=== PATIENT | male | born 1940 | race Caucasian/White ===

== ENCOUNTER → 2023-08-15 15:48 | Outpatient (CLI) | payer MEDICARE, SELFPAY | PROVIDERS: PCP Registered Nurse; Visit Provider Urology | DX: N40.1 Benign prostatic hyperplasia with lower urinary tract symptoms (principal); N13.8 Other obstructive and reflux uropathy; R33.9 Retention of urine, unspecified; R39.12 Poor urinary stream; R39.11 Hesitancy of micturition; R82.81 Pyuria | CPT/HCPCS: 51798; 81002; 87086; 99214 ==

== ENCOUNTER 2023-08-17 10:29 | Emergency (ER) | payer MEDICARE, SELFPAY ==
[2023-08-17] VITALS (9 sets, daily range): BP systolic 130–171; BP diastolic 65–94; PULSE 60–78; RESP 16; TEMP 36.6–36.7; O2SAT 98; BMI 27.9
--- NOTE | 2023-08-17 10:32 | ED.GENADULT ---
HPI - General Adult General Chief complaint: Urogenital-Male Stated complaint: unable to urinate Time Seen by Provider: 08/17/23 10:29 Source: patient Mode of arrival: Ambulatory Limitations: no limitations History of Present Illness HPI narrative: Patient is an 83-year-old male. Does have a UroLift in place. History of enlarged prostate. Was seen by Urology just a couple days ago. Had a urinalysis that was nitrite positive but the subsequent urine culture showed mixed Gram-positive iris. He is never had a urinary catheter in the past. States that over the past couple days he has noticed decreased ability to urinate to the point now where he feels like he can not empty his bladder. He is feeling quite a bit of lower abdominal pressure. Related Data Home Medications Medication Instructions Recorded Confirmed amlodipine 10 mg-benazepril 40 mg 1 cap PO DAILY 08/15/23 08/15/23 capsule apixaban 5 mg tablet (Eliquis) 5 mg PO BID 08/15/23 08/15/23 simvastatin 20 mg tablet 20 mg PO DAILY 08/15/23 08/15/23 Previous Rx's Medication Instructions Recorded tamsulosin 0.4 mg capsule 0.4 mg PO DAILY #30 caps 08/17/23 Allergies Allergy/AdvReac Type Severity Reaction Status Date / Time No Known Drug Allergies Allergy Verified 08/17/23 10:39 Review of Systems Constitutional Constitutional: Reports system reviewed and no additional complaints, except as documented Gastrointestinal Gastrointestinal: Reports system reviewed and no additional complaints, except as documented Genitourinary Genitourinary: Reports system reviewed and no additional complaints, except as documented Patient History Medical History BPH w urinary obs/LUTS Pulmonary embolism High blood pressure Lymphoma Surgical History (Updated 08/15/23 @ 15:48 by Ani Mortensen RN) History of prostate surgery H/O vasectomy H/O transurethral resection of prostate Social History marital status: unmarried,single number of children: 2 occupational status: previously employed and other Smoking Status: Former smoker Tobacco: How many years used: 20 alcohol intake: current caffeine: Yes Type(s) of exercise: walking Smoking Status: Former smoker Exam Initial Vital Signs Initial Vital Signs: Vital Signs Temperature 97.8 F 08/17/23 10:36 Pulse Rate 60 08/17/23 10:36 Respiratory Rate 16 08/17/23 10:36 Blood Pressure 171/94 H 08/17/23 10:36 Pulse Oximetry 98 08/17/23 10:36 Oxygen Delivery Method Room Air 08/17/23 10:36 Const General: cooperative and comfortable GI Inspection: normal to inspection and non-distended Palpation: tender (Suprapubic) Neuro General: patient alert, patient awake and moves all extremities Extrem General: capillary refill normal Course Orders Ordered: ED Orders 08/17/23 11:00 Urine Culture Stat Discontinued Medications Lidocaine HCl (Lidocaine 2% (Glydo) 6 Ml Gel) 6 ml TOP NOW ONE Stop: 08/17/23 10:37 Last Admin: 08/17/23 10:42 Dose: 6 ml Documented By: CASSY Vital Signs Vital signs: Vital Signs - 8 hr 08/17/23 10:36 08/17/23 11:00 Temperature 97.8 F Pulse Rate 60 Respiratory Rate 16 Blood Pressure 171/94 H 142/66 H Pulse Oximetry 98 Oxygen Delivery Method Room Air Medical Decision Making MDM Narrative Medical decision making narrative: Patient did have acute urinary retention. Had a urinalysis done a couple days ago with a urine culture that was mixed iris. A repeat urine culture was started today. He is not on Flomax so we will start him on that. Will have him follow-up with urology. Discharge Plan Departure Patient Disposition: Home Clinical Impression: Acute urinary retention Instructions: How to Care for Your Bynum Catheter -- Male, DI for Urinary Retention in Men Activity Restrictions/Additional Instructions: Recommend that you contact the office of Dr. Stahl for a follow-up. Continue to take all of your medications as directed. Return to the emergency department for new or worsening symptoms. Prescriptions: New tamsulosin 0.4 mg capsule 0.4 mg PO DAILY Qty: 30 0RF No Action Eliquis 5 mg tablet 5 mg PO BID amlodipine-benazepril 10-40 mg capsule 1 cap PO DAILY simvastatin 20 mg tablet 20 mg PO DAILY Referrals: Rita Cruz ARNP [Primary Care Provider] - Stand Alone Forms: Patient Portal/API
[2023-08-17] MEDS: LIDOCAINE 2% (GLYDO) 6 ML GEL TOP (10:42)
== END 2023-08-17 11:42 | disposition home or self-care (01) ==
PROVIDERS: Emergency Provider Emergency Medicine; PCP Registered Nurse
DX: N40.1 Benign prostatic hyperplasia with lower urinary tract symptoms (principal); R33.8 Other retention of urine; Z79.01 Long term (current) use of anticoagulants
CPT/HCPCS: 51798; 87077; 87086; 87186; 99283

== ENCOUNTER 2023-08-18 20:08 | Emergency (ER) | payer MEDICARE, SELFPAY ==
[2023-08-18 20:15] VITALS: BP 131/59; PULSE 75; RESP 18; TEMP 36.4; O2SAT 97; BMI 27.9
--- NOTE | 2023-08-18 20:15 | PC.NURSE ---
Pt here because he hasn't seen any output from his vang into his leg bag in the last two hours. Denies abdominal discomfort/pain. Upon triage and assessment, there is a small amount of dark/ti urine present in bag. Pt reports there has been some blood in urine since placement and pt is taking Eliquis. Denies dizziness/chest pain or any other symptoms.
--- NOTE | 2023-08-18 20:35 | PC.NURSE ---
20:15 this nurse in to assess patient. Patient's catheter now draining, patent. Patient wanting to go home without doctor seeing him.
== END 2023-08-18 20:42 | disposition left against medical advice (07) ==
PROVIDERS: Emergency Provider Family Medicine Addiction Medicine; PCP Registered Nurse
DX: R33.9 Retention of urine, unspecified (principal)
CPT/HCPCS: 51798; 99282

== ENCOUNTER → 2023-08-22 12:36 | Outpatient (CLI) | payer MEDICARE, SELFPAY ==
--- NOTE | 2023-08-22 12:37 | DI.US.S_ITS ---
PROCEDURE: US RENAL COMPLETE INDICATIONS: URINARY RETENTION; POSSIBLE HYDRONEPHROSIS TECHNIQUE: Real-time scanning was performed of the kidneys and bladder, with image documentation. COMPARISON: None. FINDINGS: Kidneys: Kidneys are normal in size. Right kidney measures 9.6 cm long; left kidney measures 10.0 cm long. Right renal cortical thickness is 1.3 cm; left renal cortical thickness is 1.4 cm. Renal cortical echotexture is normal. No hydronephrosis or nephrolithiasis. No suspicious solid mass lesions. Bladder: Decompressed around a Bynum catheter. Miscellaneous: No free pelvic fluid. IMPRESSION: Normal renal ultrasound. No hydronephrosis. Dictated by: Galdino Lomeli M.D. on 08/22/2023 at 15:17 Approved by: Galdino Lomeli M.D. on 08/22/2023 at 15:17
== END ==
PROVIDERS: PCP Registered Nurse; Referring Provider Urology; Visit Provider Urology
DX: N40.1 Benign prostatic hyperplasia with lower urinary tract symptoms (principal); R33.9 Retention of urine, unspecified; N13.8 Other obstructive and reflux uropathy
CPT/HCPCS: 76770

== ENCOUNTER 2023-08-27 19:29 | Emergency (ER) | payer MEDICARE, SELFPAY ==
[2023-08-27 19:31] VITALS: BP 157/71; PULSE 65; RESP 16; TEMP 36.6; O2SAT 98; BMI 27.2
--- NOTE | 2023-08-27 19:50 | ED_ITS ---
HPI - General Adult General Chief complaint: Urogenital-Male Stated complaint: Urinary catheter issues Time Seen by Provider: 08/27/23 19:40 Source: patient Mode of arrival: Ambulatory History of Present Illness HPI narrative: 83-year-old male has an indwelling urinary catheter in place. Is scheduled to receive urology next week. Is on Bactrim. Here because he states that his catheter is draining appropriately but he has quite a bit of discomfort at the tip of his penis in his concerned about redness around the tip of his penis. No fevers. Related Data Home Medications Medication Instructions Recorded Confirmed amlodipine 10 mg-benazepril 40 mg 1 cap PO DAILY 08/15/23 08/15/23 capsule apixaban 5 mg tablet (Eliquis) 5 mg PO BID 08/15/23 08/15/23 simvastatin 20 mg tablet 20 mg PO DAILY 08/15/23 08/15/23 Previous Rx's Medication Instructions Recorded tamsulosin 0.4 mg capsule 0.4 mg PO DAILY #30 caps 08/17/23 sulfamethoxazole 800 1 tab PO BID #8 tabs 08/23/23 mg-trimethoprim 160 mg tablet (Bactrim DS) cephalexin 500 mg capsule 500 mg PO QID 7 days #28 caps 08/27/23 lidocaine 5 % topical cream 1 applic topical TID PRN pain #15 08/27/23 grams Allergies Allergy/AdvReac Type Severity Reaction Status Date / Time No Known Drug Allergies Allergy Verified 08/17/23 10:39 Review of Systems Constitutional Constitutional: Reports system reviewed and no additional complaints, except as documented Genitourinary Genitourinary: Reports system reviewed and no additional complaints, except as documented Integumentary/Breasts Skin/Breast: Reports system reviewed and no additional complaints, except as documented Patient History Medical History BPH w urinary obs/LUTS Pulmonary embolism High blood pressure Lymphoma Surgical History (Updated 08/15/23 @ 15:48 by Ani Mortensen RN) History of prostate surgery H/O vasectomy H/O transurethral resection of prostate Social History marital status: unmarried,single number of children: 2 occupational status: previously employed and other Smoking Status: Former smoker Tobacco: How many years used: 20 alcohol intake: current caffeine: Yes Type(s) of exercise: walking Smoking Status: Former smoker alcohol intake frequency: 0-2 drinks per day Alcohol type: beer Substance Use Type: does not use Exam Initial Vital Signs Initial Vital Signs: Vital Signs Temperature 97.8 F 08/27/23 19:31 Pulse Rate 65 08/27/23 19:31 Respiratory Rate 16 08/27/23 19:31 Blood Pressure 157/71 H 08/27/23 19:31 Pulse Oximetry 98 08/27/23 19:31 Oxygen Delivery Method Room Air 08/27/23 19:31 GI Inspection: non-distended Scrotum: scrotum normal Other: Patient is circumcised. He does have redness on the glans of the penis. No vesicles. Urinary catheter is in place. Skin Other: Redness and irritation around the tip of the glands Course Orders Ordered: Discontinued Medications Cephalexin HCl (Cephalexin 250 Mg Capsule) 500 mg PO NOW ONE Stop: 08/27/23 19:50 Last Admin: 08/27/23 20:02 Dose: 500 mg Documented By: MARÍA Lidocaine HCl (Lidocaine 2% (Glydo) 6 Ml Gel) 6 ml TOP NOW ONE Stop: 08/27/23 19:50 Last Admin: 08/27/23 20:02 Dose: 6 ml Documented By: MARÍA Vital Signs Vital signs: Vital Signs - 8 hr 08/27/23 19:31 08/27/23 20:26 Temperature 97.8 F 97.7 F Pulse Rate 65 76 Respiratory Rate 16 16 Blood Pressure 157/71 H 148/78 H Pulse Oximetry 98 98 Oxygen Delivery Method Room Air Room Air Medical Decision Making MDM Narrative Medical decision making narrative: Bynum catheter is in place in his draining. He is wearing an adult brief. He states that he changes the brief once a day however it does seem to be quite a bit of moisture and I advised that he consider changing the brief more often has some of the redness around his scrotum of the tip of his penis could start to progress into some skin breakdown. He does have redness around the glans of the penis. He is on Bactrim. I feel adding Keflex is warranted in his situation. A prescription was given. We also adjusted the Bynum catheter so that there was less tension on it. Will also prescribe some lidocaine cream as well. He was given return precautions follow-up instructions. He expressed understanding and agreement. Discharge Plan Departure Patient Disposition: Home Clinical Impression: Complication of Bynum catheter Activity Restrictions/Additional Instructions: I do recommend on Tuesday you contact your urologist for a follow-up. He may wait and see you on Tuesday of next week at your regularly scheduled appointme nt. Continue to take your Bactrim however we are going to add a new medicine called Keflex. You were also given a prescription for a lidocaine cream. This is an as-needed medicine to try to help with the irritation with the catheter. It is also important that you change your brief often to keep the area clean and dry. Return to the emergency department for new symptoms. Prescriptions: New cephalexin 500 mg capsule 500 mg PO QID 7 Days Qty: 28 0RF lidocaine 5 % cream 1 applic topical TID PRN (Reason: pain) Qty: 15 0RF No Action sulfamethoxazole-trimethoprim [Bactrim DS] 800-160 mg tablet 1 tab PO BID Qty: 8 0RF tamsulosin 0.4 mg capsule 0.4 mg PO DAILY Qty: 30 0RF Eliquis 5 mg tablet 5 mg PO BID amlodipine-benazepril 10-40 mg capsule 1 cap PO DAILY simvastatin 20 mg tablet 20 mg PO DAILY Referrals: Rita Cruz ARNP [Primary Care Provider] - Stand Alone Forms: Patient Portal/API
[2023-08-27] MEDS: cephALEXin 250 MG CAPSULE 500 MG PO (20:02)
[2023-08-27] MEDS: LIDOCAINE 2% (GLYDO) 6 ML GEL TOP (20:02)
[2023-08-27 20:26] VITALS: BP 148/78; PULSE 76; RESP 16; TEMP 36.5; O2SAT 98
== END 2023-08-27 20:27 | disposition home or self-care (01) ==
PROVIDERS: Emergency Provider Emergency Medicine; PCP Registered Nurse
DX: T83.84XA Pain due to genitourinary prosthetic devices, implants and grafts, initial encounter (principal)
CPT/HCPCS: 99283

== ENCOUNTER → 2023-08-31 10:15 | Outpatient (CLI) | payer MEDICARE, SELFPAY | PROVIDERS: PCP Registered Nurse; Visit Provider Urology | DX: N40.1 Benign prostatic hyperplasia with lower urinary tract symptoms (principal); N13.8 Other obstructive and reflux uropathy; R33.9 Retention of urine, unspecified | CPT/HCPCS: 52000; 87086 ==

== ENCOUNTER → 2023-09-15 12:59 | Outpatient (CLI) | payer MEDICARE, SELFPAY | PROVIDERS: PCP Registered Nurse; Visit Provider Urology | DX: R33.9 Retention of urine, unspecified (principal); R39.12 Poor urinary stream; N40.1 Benign prostatic hyperplasia with lower urinary tract symptoms; N13.8 Other obstructive and reflux uropathy | CPT/HCPCS: 87077; 87086; 87186 ==

== ENCOUNTER → 2023-09-28 14:25 | Outpatient (CLI) | payer MEDICARE, SELFPAY | PROVIDERS: PCP Registered Nurse; Visit Provider Specialist | DX: N40.0 Benign prostatic hyperplasia without lower urinary tract symptoms (principal); R33.9 Retention of urine, unspecified; R39.12 Poor urinary stream | CPT/HCPCS: 87077; 87086; 87186; 99211 ==

== ENCOUNTER → 2023-11-27 11:22 | Outpatient (CLI) | payer OTHER, SELFPAY | PROVIDERS: PCP Registered Nurse; Visit Provider Nurse Practitioner Family | DX: R10.9 Unspecified abdominal pain (principal) | CPT/HCPCS: 87077; 87086; 87186 ==

== ENCOUNTER → 2023-12-23 10:54 | Outpatient (CLI) | payer OTHER, SELFPAY | PROVIDERS: PCP Registered Nurse; Visit Provider Urology | DX: N40.1 Benign prostatic hyperplasia with lower urinary tract symptoms (principal); N31.9 Neuromuscular dysfunction of bladder, unspecified; R33.9 Retention of urine, unspecified; R39.11 Hesitancy of micturition; Z90.79 Acquired absence of other genital organ(s); Z87.440 Personal history of urinary (tract) infections; Z98.890 Other specified postprocedural states; Z78.9 Other specified health status | CPT/HCPCS: 81002; 87077; 87086; 87186; 99213 ==

== ENCOUNTER → 2024-01-04 11:16 | Outpatient (CLI) | payer OTHER, SELFPAY ==
[2024-01-04 12:47] LABS: Add Manual Diff / Slide Review NO; Basophils Absolute Auto 100 /uL (0-100); Eosinophils Absolute Auto 800 /uL (0-450); Eosinophils Percent Auto 8.9 % (2-4); Hematocrit 38.7 % (41-53); Hemoglobin 13.5 g/dL (13.5-17.5); Lymphocytes Absolute Auto 3800 /uL (1100-4500); Lymphocytes Percent Auto 42.3 % (25-40); Mean Corpuscular HGB Conc 34.8 % (30-36); Mean Corpuscular Hemoglobin 31.7 PG (26-34); Monocytes Absolute Auto 600 /uL (0-900); Monocytes Percent Auto 6.9 % (3-14); Neutrophils Absolute Auto 3700 /uL (1500-7000); Neutrophils Percent Auto 40.9 % (50-75); Platelet Count 165 X10^3/uL (150-400); Red Blood Cell Count 4.25 X10^6/uL (4.5-5.9); Red Cell Distribution Width 14.6 % (11.6-14.8)
[2024-01-04 13:10] LABS: Alanine Aminotransferase 21 IU/L (<50); Albumin 4.3 g/dL (3.5-5.0); Albumin Globulin Ratio 1.2 (1.0-2.8); Alkaline Phosphatase 58 U/L (38-126); Aspartate Aminotransferase 30 IU/L (17-59); BUN Creatinine Ratio 15.7 (6-22); Bilirubin Total 0.6 mg/dL (0.2-1.3); Blood Urea Nitrogen 22 mg/dL (9-20); Carbon Dioxide 26 mmol/L (22-32); Chloride 110 mmol/L (98-107); Estimated Glomerular Filt Rate 50 mL/min (>60); Globulin 3.7 g/dL (1.7-4.1); Glucose 86 mg/dL (80-110); HEMOLYSIS < 15 (0-50); Lactate Dehydrogenase 205 U/L (120-246); Potassium 3.9 mmol/L (3.4-5.1); Sodium 142 mmol/L (137-145)
[2024-01-06 16:25] LABS: Immunoglobulin A, Serum 34 mg/dL (61-437); Immunoglobulin G,Serum 2408 mg/dL (603-1613); Immunoglobulin M, Serum 113 mg/dL (15-143)
[2024-01-06 17:09] LABS: Albumin 3.7 g/dL (2.9-4.4); Alpha-1-Globulin 0.2 g/dL (0.0-0.4); Alpha-2-Globulin 0.7 g/dL (0.4-1.0); Gamma Globulin 2.3 g/dL (0.4-1.8); Protein, Total 7.7 g/dL (6.0-8.5)
[2024-01-06 21:05] LABS: Free Kappa Lt Chains, Serum 72.3 mg/L (3.3-19.4); Free Lambda Lt Chains,Serum 9.3 mg/L (5.7-26.3)
== END ==
PROVIDERS: PCP Registered Nurse; Referring Provider Internal Medicine Hematology & Oncology; Visit Provider Internal Medicine Hematology & Oncology
DX: C85.80 Other specified types of non-Hodgkin lymphoma, unspecified site (principal); D47.2 Monoclonal gammopathy
CPT/HCPCS: 36415; 80053; 82232; 82784; 83615; 83883; 84155; 84165; 85025; 86334

== ENCOUNTER → 2024-02-29 14:13 | Outpatient (CLI) | payer OTHER, SELFPAY | PROVIDERS: PCP Registered Nurse; Visit Provider Urology | DX: N31.9 Neuromuscular dysfunction of bladder, unspecified (principal); R31.21 Asymptomatic microscopic hematuria; R33.9 Retention of urine, unspecified; Z87.440 Personal history of urinary (tract) infections; Z98.890 Other specified postprocedural states; Z90.79 Acquired absence of other genital organ(s); Z78.9 Other specified health status | CPT/HCPCS: 81002; 87077; 87086; 87186; 99214 ==

== ENCOUNTER → 2024-06-21 08:33 | Outpatient (CLI) | payer OTHER, SELFPAY | PROVIDERS: PCP Registered Nurse; Referring Provider Urology; Visit Provider Urology | DX: N39.0 Urinary tract infection, site not specified (principal) | CPT/HCPCS: 87077; 87086 ==

== ENCOUNTER → 2024-11-07 12:43 | Outpatient (CLI) | payer MEDICARE, OTHER, SELFPAY ==
--- NOTE | 2024-11-07 12:45 | DI.MRI.S_ITS ---
PROCEDURE: MR PELIS WO/W CON INDICATIONS: PROCTALGIA FUGAX TECHNIQUE: Coronal HASTE, sagittal T2 FSE, axial T1 FSE, axial and coronal nonbreath-hold T2 FSE. Axial dynamic VIBE during administration of contrast. Post-contrast axial and coronal VIBE/2-D FLASH with fat saturation from the iliac crests to the symphysis. Optional diffusion weighted imaging and ADC may be performed. COMPARISON: None. FINDINGS: Image quality: Excellent. Bowel and peritoneum: No pathologic free pelvic fluid. Inferior colon and small bowel loops are normal in caliber. Colonic diverticulosis without evidence of diverticulitis. Genitourinary system: Trabeculated bladder wall. The prostate is enlarged. There is wedge-shaped T2 hypointense signal within the peripheral zone of the prostate. Nodes and vessels: No pathologic pelvic or inguinal adenopathy by size criteria. Iliac vessels are normal in caliber. Soft tissues: Small inguinal hernias containing fat. Bones: Marrow is normal in overall signal. IMPRESSION: Prostate is enlarged, with wedge-shaped T2 hypointense signal within the peripheral zone. Findings most likely represent prostatitis, but malignancy is a consideration. Correlate with PSA. If elevated, consider prostate MRI to exclude prostate cancer. Trabeculated bladder wall, commonly seen with chronic outlet obstruction. Dictated by: Galdino Lomeli M.D. on 11/07/2024 at 16:16 Approved by: Galdino Lomeli M.D. on 11/07/2024 at 16:19
== END ==
PROVIDERS: PCP Registered Nurse; Referring Provider Registered Nurse; Visit Provider Registered Nurse
DX: K59.4 Anal spasm (principal); N40.0 Benign prostatic hyperplasia without lower urinary tract symptoms; N32.89 Other specified disorders of bladder; K57.90 Diverticulosis of intestine, part unspecified, without perforation or abscess without bleeding; K40.90 Unilateral inguinal hernia, without obstruction or gangrene, not specified as recurrent
CPT/HCPCS: 72197; A9579

== ENCOUNTER → 2024-11-21 14:38 | Outpatient (CLI) | payer MEDICARE, OTHER, SELFPAY ==
[2024-11-21 17:01] LABS: Add Manual Diff / Slide Review NO; Basophils Absolute Auto 100 /uL (0-100); Basophils Percent Auto 0.7 % (0-2); Eosinophils Absolute Auto 400 /uL (0-450); Eosinophils Percent Auto 5.3 % (2-4); Hematocrit 35.1 % (41-53); Hemoglobin 12.5 g/dL (13.5-17.5); Lymphocytes Absolute Auto 3000 /uL (1100-4500); Lymphocytes Percent Auto 37.7 % (25-40); Mean Corpuscular HGB Conc 35.6 % (30-36); Mean Corpuscular Hemoglobin 32.7 PG (26-34); Mean Corpuscular Volume 91.8 fL (80-100); Monocytes Absolute Auto 600 /uL (0-900); Monocytes Percent Auto 7.8 % (3-14); Neutrophils Absolute Auto 3800 /uL (1500-7000); Neutrophils Percent Auto 48.5 % (50-75); Platelet Count 153 X10^3/uL (150-400); Red Blood Cell Count 3.82 X10^6/uL (4.5-5.9); White Blood Cell Count 7.9 X10^3/uL (4.5-11.0)
[2024-11-21 17:30] LABS: BUN Creatinine Ratio 12.7 (6-22); Blood Urea Nitrogen 20 mg/dL (9-20); Calcium 8.7 mg/dL (8.4-10.2); Carbon Dioxide 21 mmol/L (22-32); Chloride 105 mmol/L (98-107); Estimated Glomerular Filt Rate 43 mL/min (>60); Glucose 92 mg/dL (80-110); HEMOLYSIS 18 (0-50); Potassium 4.2 mmol/L (3.4-5.1); Sodium 137 mmol/L (137-145)
== END ==
PROVIDERS: Urology; PCP Registered Nurse; Referring Provider Nurse Practitioner Gerontology; Visit Provider Nurse Practitioner Gerontology
DX: C85.80 Other specified types of non-Hodgkin lymphoma, unspecified site (principal); D47.2 Monoclonal gammopathy; R79.89 Other specified abnormal findings of blood chemistry
CPT/HCPCS: 36415; 80048; 85025

== ENCOUNTER → 2024-11-21 15:35 | Outpatient (CLI) | payer MEDICARE, OTHER, SELFPAY ==
--- NOTE | 2024-11-21 15:36 | DI.US.S_ITS ---
PROCEDURE: US RENAL COMPLETE INDICATIONS: chronic kidney disease TECHNIQUE: Real-time scanning was performed of the kidneys and bladder, with image documentation. COMPARISON: [facility], , RENAL COMPLETE, 08/22/2023, 12:48. FINDINGS: Kidneys: Kidneys are normal in size. Right kidney measures 10.8 cm long; left kidney measures 10.7 cm long. Right renal cortical thickness is 1.3 cm; left renal cortical thickness is 1.7 cm. Renal cortical echotexture is normal. Right nonobstructing calculi. No hydronephrosis or left nephrolithiasis. No suspicious solid mass lesions. Bladder: Pre-void bladder volume is 3.8 mL (patient reportedly used catheter prior to exam). Post-void residual was not calculated. Pre-void images demonstrate no intraluminal masses or stones. On pre-void images, bilateral ureteral jets are noted with color Doppler interrogation. (Of note, ureteral jets may not be detectable in up to 25% of cases due to insufficient differences in specific gravity between ureteral and bladder urine). Miscellaneous: No free pelvic fluid. IMPRESSION: Nonobstructing right nephrolithiasis. No hydronephrosis. Bilateral ureteral jets visualized. Approved by: Emmanuelle Alexis M.D.,Ph.D. on 11/22/2024 at 21:39
== END ==
PROVIDERS: PCP Registered Nurse; Referring Provider Internal Medicine Nephrology; Visit Provider Internal Medicine Nephrology
DX: C85.80 Other specified types of non-Hodgkin lymphoma, unspecified site (principal); D47.2 Monoclonal gammopathy; N18.32 Chronic kidney disease, stage 3b; N20.0 Calculus of kidney; R79.89 Other specified abnormal findings of blood chemistry
CPT/HCPCS: 36415; 76770; 80048; 85025

== ENCOUNTER → 2024-11-22 13:43 | Outpatient (CLI) | payer MEDICARE, OTHER, SELFPAY | PROVIDERS: PCP Registered Nurse; Visit Provider Urology | DX: N39.0 Urinary tract infection, site not specified (principal) | CPT/HCPCS: 87077; 87086; 87186 ==

== ENCOUNTER → 2024-12-03 14:22 | Outpatient (CLI) | payer MEDICARE, OTHER, SELFPAY ==
[2024-12-03 16:07] LABS: BUN Creatinine Ratio 11.2 (6-22); Blood Urea Nitrogen 19 mg/dL (9-20); Calcium 8.8 mg/dL (8.4-10.2); Carbon Dioxide 24 mmol/L (22-32); Chloride 105 mmol/L (98-107); Estimated Glomerular Filt Rate 39 mL/min (>60); Glucose 128 mg/dL (80-110); HEMOLYSIS < 15 (0-50); Potassium 3.8 mmol/L (3.4-5.1); Sodium 140 mmol/L (137-145)
== END ==
PROVIDERS: PCP Registered Nurse; Referring Provider Urology; Visit Provider Urology
DX: R79.89 Other specified abnormal findings of blood chemistry (principal)
CPT/HCPCS: 36415; 80048

== ENCOUNTER → 2024-12-04 13:25 | Outpatient (CLI) | payer MEDICARE, OTHER, SELFPAY | PROVIDERS: PCP Registered Nurse; Visit Provider Urology | DX: Z78.9 Other specified health status (principal); N39.0 Urinary tract infection, site not specified | CPT/HCPCS: 51702; 81002; 87077; 87086; 87186; 99214 ==

== ENCOUNTER → 2024-12-07 09:53 | Outpatient (CLI) | payer MEDICARE, OTHER, SELFPAY ==
[2024-12-07 10:34] LABS: BUN Creatinine Ratio 9.7 (6-22); Blood Urea Nitrogen 15 mg/dL (9-20); Calcium 8.7 mg/dL (8.4-10.2); Carbon Dioxide 24 mmol/L (22-32); Chloride 107 mmol/L (98-107); Estimated Glomerular Filt Rate 44 mL/min (>60); Glucose 92 mg/dL (80-110); HEMOLYSIS < 15 (0-50); Potassium 3.8 mmol/L (3.4-5.1); Sodium 139 mmol/L (137-145)
== END ==
PROVIDERS: PCP Registered Nurse; Referring Provider Urology; Visit Provider Urology
DX: R79.89 Other specified abnormal findings of blood chemistry (principal)
CPT/HCPCS: 36415; 80048

== ENCOUNTER → 2024-12-10 09:29 | Outpatient (CLI) | payer MEDICARE, OTHER, SELFPAY ==
[2024-12-10 11:30] LABS: BUN Creatinine Ratio 11.7 (6-22); Blood Urea Nitrogen 19 mg/dL (9-20); Calcium 9.1 mg/dL (8.4-10.2); Carbon Dioxide 21 mmol/L (22-32); Chloride 103 mmol/L (98-107); Estimated Glomerular Filt Rate 41 mL/min (>60); Glucose 115 mg/dL (80-110); HEMOLYSIS < 15 (0-50); Potassium 3.6 mmol/L (3.4-5.1); Sodium 138 mmol/L (137-145)
== END ==
LOC: LAB 09:31
PROVIDERS: PCP Registered Nurse; Referring Provider Urology; Visit Provider Urology
DX: R79.89 Other specified abnormal findings of blood chemistry (principal)
CPT/HCPCS: 36415; 80048

== ENCOUNTER → 2024-12-14 09:12 | Outpatient (CLI) | payer MEDICARE, OTHER, SELFPAY ==
[2024-12-14 11:12] LABS: BUN Creatinine Ratio 9.3 (6-22); Blood Urea Nitrogen 15 mg/dL (9-20); Calcium 9.3 mg/dL (8.4-10.2); Carbon Dioxide 25 mmol/L (22-32); Chloride 104 mmol/L (98-107); Estimated Glomerular Filt Rate 41 mL/min (>60); Glucose 115 mg/dL (80-110); HEMOLYSIS < 15 (0-50); Potassium 4.1 mmol/L (3.4-5.1); Sodium 138 mmol/L (137-145)
== END ==
PROVIDERS: PCP Registered Nurse; Referring Provider Urology; Visit Provider Urology
DX: N31.9 Neuromuscular dysfunction of bladder, unspecified (principal); R79.89 Other specified abnormal findings of blood chemistry; R33.9 Retention of urine, unspecified; Z78.9 Other specified health status
CPT/HCPCS: 36415; 80048; 99213

== ENCOUNTER 2024-12-21 16:33 | Emergency (ER) | payer MEDICARE, OTHER, SELFPAY ==
[2024-12-21] VITALS (9 sets, daily range): BP systolic 107–140; BP diastolic 56–66; PULSE 62–80; RESP 12–27; TEMP 36.6; O2SAT 95–100; BMI 26.5
--- NOTE | 2024-12-21 16:44 | EKG_ITS ---
[address] [address] Test Date: 2024-12-21 Pat Name: Keith Clinton Department: [facility] Room: Gender: Male Private Eye: ZEESHAN : 1940 Requested By: Order Number: [id number] Reading MD: Bj Duque MD Measurements Intervals [place] Rate: 64 P: 37 VT: 162 QRS: -22 QRSD: 92 T: 62 QT: 422 QTc: 435 Interpretive Statements Normal sinus rhythm Electronically Signed On 12-23-2024 14:59:10 PDT by Bj Duque MD
--- NOTE | 2024-12-21 16:44 | DI.RAD.S_ITS ---
PROCEDURE: XR CHEST 1V INDICATIONS: chest pain TECHNIQUE: One view of the chest was acquired. COMPARISON: None. FINDINGS: Surgical changes and devices: None. Lungs and pleura: Lungs are clear. No pleural effusions or pneumothorax. Mediastinum: Mediastinal contours appear normal. Heart size is normal. Bones and chest wall: No suspicious bony lesions. Overlying soft tissues appear unremarkable. IMPRESSION: No acute cardiopulmonary abnormality is seen. Dictated by: Michael Andrade M.D. on 12/21/2024 at 17:01 Approved by: Michael Andrade M.D. on 12/21/2024 at 17:01
[2024-12-21 17:04] LABS: Add Manual Diff / Slide Review NO; Basophils Absolute Auto 100 /uL (0-100); Basophils Percent Auto 0.7 % (0-2); Eosinophils Absolute Auto 300 /uL (0-450); Eosinophils Percent Auto 2.7 % (2-4); Hematocrit 38.6 % (41-53); Lymphocytes Absolute Auto 2600 /uL (1100-4500); Lymphocytes Percent Auto 24.9 % (25-40); Mean Corpuscular HGB Conc 33.7 % (30-36); Mean Corpuscular Hemoglobin 29.9 PG (26-34); Mean Corpuscular Volume 88.6 fL (80-100); Monocytes Absolute Auto 800 /uL (0-900); Monocytes Percent Auto 7.7 % (3-14); Neutrophils Absolute Auto 6700 /uL (1500-7000); Platelet Count 152 X10^3/uL (150-400); Red Blood Cell Count 4.36 X10^6/uL (4.5-5.9); White Blood Cell Count 10.4 X10^3/uL (4.5-11.0)
[2024-12-21 17:11] LABS: INR 1.2 (0.9-1.3); Prothrombin Time 13.1 SECONDS (9.4-12.5)
[2024-12-21 17:13] LABS: PTT Partial Thromboplastin Tim 34 SECONDS (25.1-36.5)
[2024-12-21 17:16] LABS: Alanine Aminotransferase 20 IU/L (<50); Albumin 4.5 g/dL (3.5-5.0); Albumin Globulin Ratio 1.2 (1.0-2.8); Alkaline Phosphatase 59 U/L (38-126); Aspartate Aminotransferase 32 IU/L (17-59); BUN Creatinine Ratio 12.6 (6-22); Bilirubin Total 0.6 mg/dL (0.2-1.3); Blood Urea Nitrogen 24 mg/dL (9-20); Calcium 9.2 mg/dL (8.4-10.2); Carbon Dioxide 24 mmol/L (22-32); Chloride 105 mmol/L (98-107); Creatine Kinase 119 U/L (55-170); Estimated Glomerular Filt Rate 34 mL/min (>60); Globulin 3.8 g/dL (1.7-4.1); Glucose 122 mg/dL (80-110); HEMOLYSIS < 15 (0-50); Lipase 70 U/L (23-300); Magnesium 2.2 mg/dL (1.6-2.3); Potassium 3.9 mmol/L (3.4-5.1); Sodium 140 mmol/L (137-145); Total Protein 8.3 g/dL (6.3-8.2)
[2024-12-21 17:28] LABS: NT-proBNP (BNP-Adult 18+) 352 pg/mL (<450); Troponin I < 0.012 ng/mL (0.01-0.034)
--- NOTE | 2024-12-21 18:20 | ED.WEAKNESS ---
HPI - Weakness General Chief complaint: Weakness Stated complaint: generalized weakness Time Seen by Provider: 12/21/24 18:04 Source: patient Mode of arrival: Wheelchair History of Present Illness HPI Narrative: 84-year-old male with a history of chronic kidney disease pulmonary embolism and prostate hypertrophy with self catheterization complaining of generalized weakness. He is noticed this for about 2 days. This is not focal it was not associated with chest pain shortness of breath fevers low abdominal pain nausea vomiting or dark stool. He reports that he recently started a rectal ointment he uses for spasm. He can not tell me what it is but believes it may be diltiazem. He initially presented to urgent Care, I reviewed incomplete documentation from that visit. Related Data Home Medications Medication Instructions Recorded Confirmed amlodipine 10 mg-benazepril 40 mg 1 cap PO DAILY 08/15/23 12/14/24 capsule simvastatin 20 mg tablet 20 mg PO DAILY 08/15/23 12/14/24 sertraline 200 mg capsule 200 mg PO DAILY 09/09/23 12/14/24 cholecalciferol (vitamin D3) 10 10 mcg PO DAILY 12/04/24 12/14/24 mcg (400 unit) capsule apixaban 5 mg tablet (Eliquis) 5 mg PO BID 12/21/24 12/21/24 dicyclomine 10 mg capsule 10 mg PO 4XD PRN muscle spasm 12/21/24 12/21/24 donepezil 5 mg tablet 5 mg PO ONCE PM 12/21/24 12/21/24 donepezil 5 mg tablet 5 mg PO ONCE PM 12/21/24 12/21/24 Previous Rx's Medication Instructions Recorded cephalexin 500 mg capsule 500 mg PO TID #30 caps 12/07/24 Allergies Allergy/AdvReac Type Severity Reaction Status Date / Time ANTICHOLINERGIC AdvReac Unknown Uncoded 12/21/24 16:45 Patient History Medical History (Updated 12/21/24 @ 18:29 by Wilman Caballero MD) Elevated serum creatinine Intermittent self-catheterization of bladder History of urinary tract infection Dysfunction, bladder Urinary retention Urinary tract infection Benign prostatic hyperplasia Incomplete emptying of bladder Weak urinary stream BPH w urinary obs/LUTS Pulmonary embolism High blood pressure Lymphoma Surgical History (Updated 08/31/23 @ 09:33 by Blas Stahl MD) History of prostate surgery H/O vasectomy H/O transurethral resection of prostate Social History marital status: unmarried,single number of children: 2 occupational status: previously employed and other Smoking Status: Former smoker Tobacco: How many years used: 20 alcohol intake: current caffeine: Yes Type(s) of exercise: walking Smoking Status: Former smoker alcohol intake frequency: 0-2 drinks per day Alcohol type: beer Exam Initial Vital Signs Initial Vital Signs: Vital Signs Temperature 98 F 12/21/24 16:37 Pulse Rate 68 12/21/24 16:37 Respiratory Rate 20 12/21/24 16:37 Blood Pressure 113/56 L 12/21/24 16:37 Pulse Oximetry 100 12/21/24 16:37 Oxygen Delivery Method Room Air 12/21/24 16:37 vital signs reviewed Const Other: appears to be in no distress HENMI HENMI Other: normocephalic atraumatic Resp Other: normal respiratory effort lungs are clear Cardio Other: regular rhythm and rate no murmur rub or gallop GI Other: normal bowel sounds soft and nontender Skin Other: warm and dry Neuro Other: alert oriented with no focal neuro deficits Course Orders Ordered: ED Orders 12/21/24 16:44 XR chest 1V Stat EKG-12 Lead Stat 12/21/24 16:51 Complete Blood Count AUTO DIFF Stat Comprehensive Metabolic Panel Stat Lipase Stat Magnesium Stat NT-proBNP (BNP-Adult 18+) Stat PTT Partial Thromboplastin Manfred Stat Prothrombin Time INR Stat Troponin & CK Cardiac Panel Stat Discontinued Medications Aspirin (Aspirin 81 Mg Chew Tab) 324 mg PO NOW ONE Stop: 12/21/24 16:45 Last Admin: 12/21/24 17:31 Dose: Not Given Documented By: SB Vital Signs Vital signs: Vital Signs - 8 hr 12/21/24 16:37 12/21/24 17:11 12/21/24 17:12 Temperature 98 F Pulse Rate 68 69 Pulse Rate [Orthostatic Lying] Pulse Rate [Orthostatic Sitting] Pulse Rate [Orthostatic Standing] Respiratory Rate 20 27 H Blood Pressure 113/56 L 130/60 Blood Pressure [Orthostatic Lying] Blood Pressure [Orthostatic Sitting] Blood Pressure [Orthostatic Standing] Pulse Oximetry 100 Oxygen Delivery Method Room Air 12/21/24 17:12 12/21/24 17:30 12/21/24 17:31 Temperature Pulse Rate 67 65 Pulse Rate [Orthostatic Lying] Pulse Rate [Orthostatic Sitting] Pulse Rate [Orthostatic Standing] Respiratory Rate 18 Blood Pressure 107/56 L Blood Pressure [Orthostatic Lying] Blood Pressure [Orthostatic Sitting] Blood Pressure [Orthostatic Standing] Pulse Oximetry 97 96 Oxygen Delivery Method 12/21/24 17:31 12/21/24 18:00 12/21/24 18:00 Temperature Pulse Rate 65 63 Pulse Rate [Orthostatic Lying] Pulse Rate [Orthostatic Sitting] Pulse Rate [Orthostatic Standing] Respiratory Rate 12 13 Blood Pressure 118/66 Blood Pressure [Orthostatic Lying] Blood Pressure [Orthostatic Sitting] Blood Pressure [Orthostatic Standing] Pulse Oximetry 96 96 Oxygen Delivery Method 12/21/24 18:21 12/21/24 18:21 12/21/24 18:21 Temperature Pulse Rate 62 Pulse Rate [Orthostatic Lying] 62 Pulse Rate [Orthostatic Sitting] 80 Pulse Rate [Orthostatic Standing] 76 Respiratory Rate 25 H Blood Pressure 133/62 Blood Pressure [Orthostatic Lying] 133/62 Blood Pressure [Orthostatic Sitting] 121/58 L Blood Pressure [Orthostatic Standing] 140/63 Pulse Oximetry 95 Oxygen Delivery Method 12/21/24 18:23 12/21/24 18:23 12/21/24 18:24 Temperature Pulse Rate 66 Pulse Rate [Orthostatic Lying] Pulse Rate [Orthostatic Sitting] Pulse Rate [Orthostatic Standing] Respiratory Rate 20 Blood Pressure 121/58 L 140/63 Blood Pressure [Orthostatic Lying] Blood Pressure [Orthostatic Sitting] Blood Pressure [Orthostatic Standing] Pulse Oximetry Oxygen Delivery Method 12/21/24 18:24 Temperature Pulse Rate 66 Pulse Rate [Orthostatic Lying] Pulse Rate [Orthostatic Sitting] Pulse Rate [Orthostatic Standing] Respiratory Rate 20 Blood Pressure Blood Pressure [Orthostatic Lying] Blood Pressure [Orthostatic Sitting] Blood Pressure [Orthostatic Standing] Pulse Oximetry Oxygen Delivery Method MDM - Weakness Lab Data Lab results narrative: CBC with diff and CMP are unremarkable 12/21/24 16:51 12/21/24 16:51 Labs: Lab Results 12/21/24 Range/Units 16:51 WBC 10.4 (4.5-11.0) X10^3/uL RBC 4.36 L (4.5-5.9) X10^6/uL Hgb 13.0 L (13.5-17.5) g/dL Hct 38.6 L (41-53) % MCV 88.6 (80-100) fL MCH 29.9 (26-34) PG MCHC 33.7 (30-36) % RDW 16.0 H (11.6-14.8) % Plt Count 152 (150-400) X10^3/uL Neut % (Auto) 64.0 (50-75) % Lymph % (Auto) 24.9 L (25-40) % Pitkin % (Auto) 7.7 (3-14) % Eos % (Auto) 2.7 (2-4) % Baso % (Auto) 0.7 (0-2) % Neut # (Auto) 6700 (3394-3260) /uL Lymph # (Auto) 2600 (3494-5576) /uL Pitkin # (Auto) 800 (0-900) /uL Eos # (Auto) 300 (0-450) /uL Baso # (Auto) 100 (0-100) /uL PT 13.1 H (9.4-12.5) SECONDS INR 1.2 (0.9-1.3) APTT 34 (25.1-36.5) SECONDS Sodium 140 (137-145) mmol/L Potassium 3.9 (3.4-5.1) mmol/L Chloride 105 (98-107) mmol/L Carbon Dioxide 24 (22-32) mmol/L BUN 24 H (9-20) mg/dL Creatinine 1.91 H (0.66-1.25) mg/dL Estimated GFR 34 L (>60) mL/min BUN/Creatinine Ratio 12.6 (6-22) Glucose 122 H (80-110) mg/dL Calcium 9.2 (8.4-10.2) mg/dL Magnesium 2.2 (1.6-2.3) mg/dL Total Bilirubin 0.6 (0.2-1.3) mg/dL AST 32 (17-59) IU/L ALT 20 (<50) IU/L Alkaline Phosphatase 59 (38-126) U/L Total Creatine Kinase 119 (55-170) U/L Troponin I < 0.012 (0.01-0.034) ng/mL NT-Pro-B Natriuret Pep 352 (<450) pg/mL Total Protein 8.3 H (6.3-8.2) g/dL Albumin 4.5 (3.5-5.0) g/dL Globulin 3.8 (1.7-4.1) g/dL Albumin/Globulin Ratio 1.2 (1.0-2.8) Lipase 70 (23-300) U/L ECG Data Interpretation: normal sinus rhythm at [address] segment changes normal EKG MDM Narrative Medical decision making narrative: no significant orthostatic changes, tolerated ambulation well. 84-year-old male complaining of generalized weakness, onset after starting a new medication which he is applying has a rectal cream. The patient was unable to tell me what that medication was but may have been diltiazem which is consistent with an antispasmodic. Symptoms seemed to have resolved and workup is reassuring without evidence of major metabolic disturbance, infection, hemorrhage and he is presently normotensive without orthostatic changes. I advised him to discontinue that new medication and follow up soon with his primary care provider. Discharge Plan Departure Patient Disposition: Home Clinical Impression: General weakness Adverse drug effect Qualifiers: Encounter type: initial encounter Qualified Code(s): T50.905A - Adverse effect of unspecified drugs, medicaments and biological substances, initial encounter Activity Restrictions/Additional Instructions: Emergency department evaluation today is reassuring. I think it is safe to go home. I recommend you stop the use of the new rectal ointment. Continue your other previous home medications. Follow up as soon as possible with your primary care provider. Return to the emergency department for increasing weakness, chest pain shortness of breath or other acute symptoms Prescriptions: No Action cephalexin 500 mg capsule 500 mg PO TID Qty: 30 0RF donepezil 5 mg tablet 5 mg PO ONCE PM donepezil 5 mg tablet 5 mg PO ONCE PM dicyclomine 10 mg capsule 10 mg PO 4XD PRN (Reason: muscle spasm) Eliquis 5 mg tablet 5 mg PO BID sertraline 200 mg capsule 200 mg PO DAILY cholecalciferol (vitamin D3) 10 mcg (400 unit) capsule 10 mcg PO DAILY amlodipine-benazepril 10-40 mg capsule 1 cap PO DAILY simvastatin 20 mg tablet 20 mg PO DAILY Referrals: Lisa Calvillo ARNP [Primary Care Provider] - Stand Alone Forms: Patient Portal/API/Survey
== END 2024-12-21 18:56 | disposition home or self-care (01) ==
PROVIDERS: Emergency Medicine; Emergency Provider Emergency Medicine; PCP Registered Nurse
DX: R53.1 Weakness (principal); T50.905A Adverse effect of unspecified drugs, medicaments and biological substances, initial encounter; R07.9 Chest pain, unspecified
CPT/HCPCS: 36415; 71045; 80053; 82550; 83690; 83735; 83880; 84484; 85025; 85610; 85730; 93005; 99283; 99284

== ENCOUNTER → 2025-01-10 09:34 | Outpatient (CLI) | payer MEDICARE, OTHER, SELFPAY ==
[2025-01-10 10:41] LABS: BUN Creatinine Ratio 10.3 (6-22); Blood Urea Nitrogen 18 mg/dL (9-20); Calcium 9.3 mg/dL (8.4-10.2); Carbon Dioxide 27 mmol/L (22-32); Chloride 106 mmol/L (98-107); Estimated Glomerular Filt Rate 38 mL/min (>60); Glucose 94 mg/dL (80-110); HEMOLYSIS < 15 (0-50); Potassium 4.1 mmol/L (3.4-5.1); Sodium 140 mmol/L (137-145)
== END ==
PROVIDERS: PCP Registered Nurse; Referring Provider Urology; Visit Provider Urology
DX: R79.89 Other specified abnormal findings of blood chemistry (principal)
CPT/HCPCS: 36415; 80048

== ENCOUNTER → 2025-01-14 13:23 | Outpatient (CLI) | payer MEDICARE, OTHER, SELFPAY | PROVIDERS: PCP Registered Nurse; Visit Provider Urology | DX: Z87.440 Personal history of urinary (tract) infections (principal); Z78.9 Other specified health status | CPT/HCPCS: 87077; 87086 ==

== ENCOUNTER → 2025-03-07 12:12 | Outpatient (CLI) | payer MEDICARE, OTHER, SELFPAY ==
[2025-03-07 13:11] LABS: Hemoglobin 12.2 g/dL (13.5-17.5); Mean Corpuscular HGB Conc 34.7 % (30-36); Mean Corpuscular Hemoglobin 31.4 PG (26-34); Mean Corpuscular Volume 90.5 fL (80-100); Platelet Count 148 X10^3/uL (150-400); Red Blood Cell Count 3.87 X10^6/uL (4.5-5.9); White Blood Cell Count 8.8 X10^3/uL (4.5-11.0)
[2025-03-07 13:36] LABS: HEMOLYSIS < 15 (0-50); Iron 101 ug/dL (49-181)
[2025-03-07 13:36] LABS: BUN Creatinine Ratio 11.6 (6-22); Blood Urea Nitrogen 19 mg/dL (9-20); Carbon Dioxide 23 mmol/L (22-32); Chloride 104 mmol/L (98-107); Estimated Glomerular Filt Rate 41 mL/min (>60); Glucose 83 mg/dL (70-99); HEMOLYSIS < 15 (0-50); Sodium 136 mmol/L (137-145)
[2025-03-07 13:41] LABS: Albumin 4.5 g/dL (3.5-5.0); BUN Creatinine Ratio 12.7 (6-22); Blood Urea Nitrogen 20 mg/dL (9-20); Calcium 8.9 mg/dL (8.4-10.2); Carbon Dioxide 23 mmol/L (22-32); Chloride 105 mmol/L (98-107); Estimated Glomerular Filt Rate 43 mL/min (>60); Glucose 85 mg/dL (70-99); HEMOLYSIS < 15 (0-50); Magnesium 2.1 mg/dL (1.6-2.3); Phosphorous 3.8 mg/dL (2.3-3.7); Potassium 3.9 mmol/L (3.4-5.1); Sodium 137 mmol/L (137-145)
[2025-03-07 13:46] LABS: Percent Iron Saturation 37 % (20-50); Total Iron Binding Capacity 270 ug/dL (261-462); Transferrin 214 mg/dL (206-381)
[2025-03-07 14:02] LABS: Appearance Urine UA CLEAR; Bilirubin Urine UA NEGATIVE (NEGATIVE); Color Urine UA YELLOW; Glucose Urine UA NEGATIVE (Negative); Ketones Urine UA NEGATIVE (NEGATIVE); Leukocyte Esterase Urine UA 1+ (NEGATIVE); Nitrite Urine UA POSITIVE (Negative); Occult Blood Urine UA NEGATIVE (Negative); Protein Urine UA TRACE (Negative); Urobilinogen Urine UA 0.2 E.U./dL (0.2); pH Urine UA 5.5 (4.5-8.0)
[2025-03-07 14:13] LABS: Ferritin 50 ng/mL (18-464)
[2025-03-07 14:18] LABS: Bacteria Urine Many (>30); Culture Indicated Urine Cult Not Indicated; RBC Urine 0-1/HPF (0-5/HPF); Squamous Epithelial Cell Urine 1-5 /HPF (0-5/HPF); Urine Volume 10mL (spun); WBC Urine 5-10/HPF (0-5/HPF)
[2025-03-07 15:20] LABS: Creatinine Urine Random 73.07 mg/dL; Protein (Total) Urine Random 34 mg/dL (0-12); Protein Creatinine Ratio Urine 0.46 GRAM/24H
[2025-03-07 15:36] LABS: Vitamin D 25 Hydroxy (D3) 36.8 ng/mL (30.0-100.0)
[2025-03-10 07:36] LABS: Parathyroid Hormone Int 58 pg/mL (15-65)
== END ==
PROVIDERS: Urology; PCP Registered Nurse; Referring Provider Internal Medicine Nephrology; Visit Provider Internal Medicine Nephrology
DX: K59.4 Anal spasm (principal); D47.2 Monoclonal gammopathy; N18.32 Chronic kidney disease, stage 3b; E55.9 Vitamin D deficiency, unspecified; R79.89 Other specified abnormal findings of blood chemistry; N29 Other disorders of kidney and ureter in diseases classified elsewhere
CPT/HCPCS: 36415; 80048; 80069; 81001; 82306; 82570; 82728; 83540; 83550; 83735; 83970; 84156; 84550; 85027; 99214

== ENCOUNTER → 2025-03-27 14:44 | Outpatient (CLI) | payer MEDICARE, OTHER, SELFPAY | PROVIDERS: PCP Registered Nurse; Visit Provider Urology | DX: N30.01 Acute cystitis with hematuria (principal); N40.1 Benign prostatic hyperplasia with lower urinary tract symptoms; N13.8 Other obstructive and reflux uropathy; R33.9 Retention of urine, unspecified; Z78.9 Other specified health status | CPT/HCPCS: 81002; 87077; 87086; 87186; 99213 ==

== ENCOUNTER → 2025-06-07 12:38 | Outpatient (CLI) | payer MEDICARE, OTHER, SELFPAY | PROVIDERS: Family Provider Registered Nurse; PCP Registered Nurse; Visit Provider Urology | DX: R33.9 Retention of urine, unspecified (principal); Z87.440 Personal history of urinary (tract) infections | CPT/HCPCS: 87077; 87086; 87186 ==